=== PATIENT | female | born 1940 | race African-American/Black ===

== ENCOUNTER 2019-06-10 11:31 | Outpatient (CLI) | payer OTHER | END 2019-06-10 11:32 | disposition home or self-care (01) | LOC: RAD 11:31 | DX: J45.998 Other asthma (principal) ==

== ENCOUNTER 2023-11-10 19:11 | Inpatient (IN) | payer OTHER ==
[~2023-11-10] VITALS: Ht 152.4 cm; Wt 54.4 kg
[2023-11-10] MEDS ORDERED: MEMANTINE HCL5 MG PO (19:29)
[2023-11-10] MEDS ORDERED: LOSARTAN POTAS100 MG PO (19:30)
[2023-11-10] MEDS ORDERED: METOPROLOL SUCC50 MG PO (19:30)
[2023-11-10] MEDS ORDERED: PROZAC10 M1 PO (19:31)
[2023-11-10 23:21] LABS: HEMATOCRIT 31.1 % (36.0-45.00); HEMOGLOBIN 10.3 g/dL (12.0-15.00); MEAN CORPUSCULAR HEMOGLOBIN 26.1 pg (27.00-32.0); MEAN CORPUSCULAR HGB CONC 33.1 g/dl (32.0-36.0); PLATELET COUNT 189 K/uL (150-450); RED BLOOD COUNT 3.94 M/uL (4.00-6.00); RED CELL DISTRIBUTION WIDTH 14.5 % (11.5-14.5)
[2023-11-10 23:34] LABS: INR 1.04; PARTIAL THROMBOPLASTIN TIME 32.2 SECONDS (22.0-34.0); PROTHROMBIN TIME 10.9 SECONDS (9.0-11.5)
[2023-11-10 23:37] LABS: URINE APPEARANCE Turbid; URINE BILIRRUBIN Negative (NEGATIVE); URINE BLOOD Moderate; URINE COLOR Yellow; URINE LEUKOCYTE Large; URINE NITRATE Negative; URINE UROBILINOGEN 0.2 E.U./dl
[2023-11-10 23:40] LABS: URINE RBC 23.9 uL (0.0-20.8); URINE WBC 2656.1 uL (0.0-23.2)
[2023-11-10 23:42] LABS: CALCIUM 7.9 mg/dL (8.5-10.1); MAGNESIUM 2.4 mg/dL (1.8-2.4); PHOSPHOROUS 2.8 mg/dL (2.5-4.9)
[2023-11-10 23:45] LABS: CALCIUM 8.4 mg/dL (8.5-10.1); CREATININE SERUM 2.43 mg/dL (0.55-1.02); GFR 19.1; POTASSIUM 3.92 mEq/L (3.5-5.1)
[2023-11-10 23:56] LABS: URINE BACTERIA > 9821.5 uL (0.0-1933); URINE GLUCOSE 500 MG/DL (NEGATIVE); URINE PROTEIN 100 (NEGATIVE)
[2023-11-11 00:05] LABS: URINE YEAST FEW /hpf
[2023-11-11 13:32] LABS: PH,URINE 5.5 (5.0-8.0); URINE APPEARANCE Cloudy; URINE BILIRRUBIN Negative (NEGATIVE); URINE BLOOD Moderate; URINE COLOR Yellow; URINE LEUKOCYTE Large; URINE NITRATE Negative; URINE PROTEIN 30 (NEGATIVE); URINE UROBILINOGEN 0.2 E.U./dl
[2023-11-11 13:36] LABS: URINE BACTERIA 862.9 uL (0.0-1933); URINE EPITHELIAL CELLS 14.3 uL (0.0-38.8); URINE WBC 419.8 uL (0.0-23.2)
[2023-11-11 13:52] LABS: HEMATOCRIT 35.1 % (36.0-45.00); HEMOGLOBIN 11.5 g/dL (12.0-15.00); MEAN CELL VOLUME 79.6 fL (80.00-100.00); MEAN CORPUSCULAR HEMOGLOBIN 26.1 pg (27.00-32.0); MEAN CORPUSCULAR HGB CONC 32.8 g/dl (32.0-36.0); RED BLOOD COUNT 4.41 M/uL (4.00-6.00); RED CELL DISTRIBUTION WIDTH 14.9 % (11.5-14.5)
[2023-11-11 14:01] LABS: URINE GLUCOSE 500 MG/DL (NEGATIVE)
[2023-11-11 14:05] LABS: CALCIUM 8.6 mg/dL (8.5-10.1); MAGNESIUM 2.5 mg/dL (1.8-2.4); PHOSPHOROUS 2.9 mg/dL (2.5-4.9)
[2023-11-11 14:22] LABS: PLATELET COUNT 237 K/uL (150-450)
[2023-11-11 15:39] LABS: INR 1.04; PARTIAL THROMBOPLASTIN TIME 31.2 SECONDS (22.0-34.0); PROTHROMBIN TIME 10.9 SECONDS (9.0-11.5)
[2023-11-11 23:19] LABS: HEMATOCRIT 35.2 % (36.0-45.00); MEAN CELL VOLUME 80.1 fL (80.00-100.00); MEAN CORPUSCULAR HEMOGLOBIN 26.1 pg (27.00-32.0); MEAN CORPUSCULAR HGB CONC 32.6 g/dl (32.0-36.0); PLATELET COUNT 231 K/uL (150-450); RED CELL DISTRIBUTION WIDTH 14.6 % (11.5-14.5)
[2023-11-11 23:43] LABS: HEMOGLOBIN 11.5 g/dL (12.0-15.00)
[2023-11-12 07:16] LABS: HEMATOCRIT 34.9 % (36.0-45.00); HEMOGLOBIN 11.6 g/dL (12.0-15.00); MEAN CELL VOLUME 79.2 fL (80.00-100.00); MEAN CORPUSCULAR HEMOGLOBIN 26.2 pg (27.00-32.0); MEAN CORPUSCULAR HGB CONC 33.1 g/dl (32.0-36.0); PLATELET COUNT 222 K/uL (150-450); RED BLOOD COUNT 4.42 M/uL (4.00-6.00); RED CELL DISTRIBUTION WIDTH 14.8 % (11.5-14.5)
[2023-11-12 07:48] LABS: ALBUMIN 1.9 gm/dL (3.4-5.0); BILIRUBIN TOTAL 0.37 mg/dL (0.3-1.2); C-REACTIVE PROTEIN 17.1 MG/DL (0.00-0.29); CALCIUM 7.4 mg/dL (8.5-10.1); CREATININE SERUM 2.07 mg/dL (0.55-1.02); GFR 22.98; GLOBULINA 3.4 G/DL (2.4-3.5); MAGNESIUM 2.1 mg/dL (1.8-2.4); PHOSPHOROUS 2.4 mg/dL (2.5-4.9); POTASSIUM 4.02 mEq/L (3.5-5.1); TOTAL PROTEIN 5.3 gm/dL (6.4-8.2)
[2023-11-13] MEDS ORDERED: TRAMADOL HCL50 MG PO (08:11)
[2023-11-13] MEDS ORDERED: DUI500 PO (08:11)
[2023-11-13] MEDS ORDERED: ELIQUIS2.5 MG PO (08:11)
[2023-11-13 13:37] LABS: HEMATOCRIT 31.7 % (36.0-45.00); HEMOGLOBIN 10.2 g/dL (12.0-15.00); MEAN CELL VOLUME 81.1 fL (80.00-100.00); MEAN CORPUSCULAR HGB CONC 32.1 g/dl (32.0-36.0); PLATELET COUNT 253 K/uL (150-450); RED CELL DISTRIBUTION WIDTH 14.9 % (11.5-14.5)
[2023-11-13 13:53] LABS: CALCIUM 7.8 mg/dL (8.5-10.1); CREATININE SERUM 2.16 mg/dL (0.55-1.02); GFR 21.88; POTASSIUM 4.46 mEq/L (3.5-5.1)
[2023-11-13 19:20] LABS: PH,URINE 5.5 (5.0-8.0); URINE APPEARANCE Clear; URINE BILIRRUBIN Negative (NEGATIVE); URINE BLOOD Trace; URINE COLOR Yellow; URINE LEUKOCYTE Negative; URINE NITRATE Negative; URINE PROTEIN 30 (NEGATIVE); URINE UROBILINOGEN 0.2 E.U./dl
[2023-11-13 19:22] LABS: URINE BACTERIA 105.8 uL (0.0-1933); URINE EPITHELIAL CELLS 5.1 uL (0.0-38.8); URINE RBC 337.2 uL (0.0-20.8); URINE WBC 7.1 uL (0.0-23.2)
[2023-11-13 19:37] LABS: URINE GLUCOSE 100 MG/DL (NEGATIVE); URINE YEAST MANY /hpf
[2023-11-14 06:52] LABS: HEMATOCRIT 29.8 % (36.0-45.00); HEMOGLOBIN 9.9 g/dL (12.0-15.00); MEAN CELL VOLUME 79.2 fL (80.00-100.00); MEAN CORPUSCULAR HEMOGLOBIN 26.2 pg (27.00-32.0); MEAN CORPUSCULAR HGB CONC 33.2 g/dl (32.0-36.0); PLATELET COUNT 284 K/uL (150-450); RED BLOOD COUNT 3.76 M/uL (4.00-6.00); RED CELL DISTRIBUTION WIDTH 15.2 % (11.5-14.5)
[2023-11-14 07:24] LABS: CALCIUM 7.7 mg/dL (8.5-10.1); CREATININE SERUM 2.24 mg/dL (0.55-1.02); GFR 20.98; POTASSIUM 4.37 mEq/L (3.5-5.1)
== END 2023-11-15 11:57 | disposition home or self-care (01) | DRG 522 ==
LOC: ER 19:11 → SURG 20:06
PROVIDERS: Emergency Medicine; General Practice; Internal Medicine; Internal Medicine Infectious Disease; ADMIT Orthopaedic Surgery; ATTEND Orthopaedic Surgery
PROC: 30233N1 Transfusion of Nonautologous Red Blood Cells into Peripheral Vein, Percutaneous Approach (ICD-10-PCS; 2023-11-10)
PROC: 0MBM0ZZ Excision of Left Hip Bursa and Ligament, Open Approach (ICD-10-PCS; 2023-11-12)
PROC: 0SRS0JZ Replacement of Left Hip Joint, Femoral Surface with Synthetic Substitute, Open Approach (ICD-10-PCS; principal; 2023-11-12 07:00)
DX: S72.032A Displaced midcervical fracture of left femur, initial encounter for closed fracture (principal); N39.0 Urinary tract infection, site not specified; M16.12 Unilateral primary osteoarthritis, left hip; M81.8 Other osteoporosis without current pathological fracture; N18.9 Chronic kidney disease, unspecified; E11.9 Type 2 diabetes mellitus without complications; Z79.4 Long term (current) use of insulin; D64.9 Anemia, unspecified

== ENCOUNTER 2023-12-20 10:28 | Emergency (ER) | payer OTHER ==
[~2023-12-20] VITALS: Ht 154.9 cm; Wt 61.2 kg
[~2023-12-20 10:28] MED LIST: DUI500 PO; ELIQUIS2.5 MG PO; LOSARTAN POTAS100 MG PO; MEMANTINE HCL5 MG PO; METOPROLOL SUCC50 MG PO; PROZAC10 M1 PO; TRAMADOL HCL50 MG PO
[2023-12-20] MEDS ORDERED: 0.9 % SODIUM CHLORIDE 1,000 ML IV SCH (11:00)
[2023-12-20] MEDS ORDERED: KETOROLAC TROMETHAMINE 30 MG VIAL IV ONE (11:00)
[2023-12-20 11:26] LABS: HEMATOCRIT 32.3 % (36.0-45.00); HEMOGLOBIN 10.6 g/dL (12.0-15.00); MEAN CELL VOLUME 80.4 fL (80.00-100.00); MEAN CORPUSCULAR HEMOGLOBIN 26.3 pg (27.00-32.0); MEAN CORPUSCULAR HGB CONC 32.7 g/dl (32.0-36.0); PLATELET COUNT 292 K/uL (150-450); RED BLOOD COUNT 4.02 M/uL (4.00-6.00); RED CELL DISTRIBUTION WIDTH 15.2 % (11.5-14.5)
[2023-12-20 11:29] LABS: ERYTHROCYTE SEDIMENTATION RATE 101 mm/hr
[2023-12-20 11:48] LABS: CALCIUM 9.5 mg/dL (8.5-10.1); CREATININE SERUM 1.9 mg/dL (0.55-1.02); GFR 25.37
[2023-12-20 11:49] LABS: POTASSIUM 5.09 mEq/L (3.5-5.1)
[2023-12-20] MEDS ORDERED: TRAMADOL HCL 50 MG TABLET PO ONE (19:15)
== END 2023-12-20 21:39 | disposition home or self-care (01) ==
LOC: ER 10:28
PROVIDERS: Emergency Medicine
DX: M25.462 Effusion, left knee (principal)
CPT/HCPCS: 36415; 73521; 73560; 73700; 96365; 96366; 99284; J1885; J7030